=== PATIENT | male | born 1960 | race Caucasian/White ===

== ENCOUNTER → 2024-05-17 08:03 | Outpatient (REF) | payer BC, SELFPAY | LOC: RCS 08:03 | PROVIDERS: ATTENDING PHYSICIAN Physician Assistant Medical; FAMILY PHYSICIAN Family Medicine | DX: I45.10 Unspecified right bundle-branch block (principal); R06.02 Shortness of breath; R07.9 Chest pain, unspecified | CPT/HCPCS: 93017; 93350; Q9957 ==